=== PATIENT | female | born 1940 | race Caucasian/White ===

== ENCOUNTER 2023-12-08 13:07 | Emergency (ER) | payer BC, SELFPAY ==
[2023-12-08 13:14] VITALS: BP 183/83; PULSE 66; RESP 18; O2SAT 97; BMI 24.2
--- NOTE | 2023-12-08 13:30 | CRLHL7_ITS ---
For Patients: As a result of the Century Cures Act, medical imaging exams and procedure reports are released immediately into your electronic medical record. You may view this report before your referring provider. If you have questions, please contact your health care provider. INDICATION: Right-sided rib pain related to trauma. COMPARISON: There are no prior studies for comparison TECHNIQUE: : CT examination of the chest was performed without contrast.Thin axial sections were obtained from the thoracic inlet through the lung bases. Please note that all CT scans at this facility use dose modulation, iterative reconstruction, and/or weight-based dosing when appropriate to reduce radiation dose to as low as reasonably achievable. FINDINGS: : HEART and MEDIASTINUM: The heart is enlarged. There is no mediastinal or hilar adenopathy or mass. There are atherosclerotic vascular calcifications and aortic valvular calcifications. A small hiatal hernia is noted LUNGS and PLEURAL SPACES: There is a very small right pneumothorax. No significant pleural effusion. Minimal bibasilar atelectasis. The lungs are globally abnormal. There is a mosaic attenuation pattern identified. This is a descriptive term describing ground-glass opacities interspersed with normal parenchyma.The appearance is nonspecific. The most common causes are atypical inflammatory process, atypical appearance of edema, small-vessel disease and small airway disease. This is unlikely to be due to the patient`s acute trauma. VISUALIZED UPPER ABDOMEN: Cholelithiasis. No evidence of acute cholecystitis or common duct obstruction limited visualized upper abdominal structures appear normal. OSSEOUS STRUCTURES: Nondisplaced fractures of the posterolateral aspect of the right 10th and 11th ribs. No additional fractures identified including the spine and sternum. TUBES and LINES: None. I discussed this case with Dr. Watson at 2 o`clock on December 08, 2023 IMPRESSION: 1. Nondisplaced fractures of the posterolateral aspect of the right 10th and 11th ribs. No additional fractures identified including the spine 2. Very small right pneumothorax. No significant pleural fluid on the right. 3. Minimal bibasilar subsegmental atelectasis. Diffuse abnormal lungs presenting as a mosaic attenuation pattern. This pattern is discussed in the body of the report. The mosaic attenuation pattern is unlikely to be related to the patient`s trauma. 4. Cholelithiasis without evidence of acute cholecystitis or common duct obstruction. Please note that all CT scans at this facility use dose modulation, iterative reconstruction, and/or weight-based dosing when appropriate to reduce radiation dose to as low as reasonably achievable. Dictated by Joseph Elder MD @ 12/08/2023 2:02:02 PM (Electronically Signed)
[2023-12-08 13:34] VITALS: TEMP 36.7
--- OUTSIDE RECORDS SUMMARY | 2023-12-08 14:19 | XMS_ITS | Continuity of Care Document ---
Author Organization [facility] Address [address] [place] [address] Phone Care Team Providers Care Hospitality Specialist Name Role Phone Jerri Mcnally MD Unavailable Unavailable Allergies, Adverse Reactions, Alerts Substance Reaction Status Criticality Penicillins Active No Information Sulfa (Sulfonamide Antibiotics) Active No Information Medications Medication Instructions Dosage Effective Dates (start - stop) Status Comments LISINOPRIL TAB 10MG TAKE 1 TABLET DAILY - Active SIMVASTATIN TAB 20MG TAKE 1 TABLET DAILY 20 MG - Active donepezil 10 mg tablet - Active Zocor 20 mg tablet take 1 tablet by oral route every day 20 MG - No Longer Active lisinopril 10 mg tablet TAKE 1 TABLET DAILY - No Longer Active Procedures Procedure Date MED LIST DOCD IN RCRD DIAST BP < 80 MM HG SYST BP < 130 MM HG PT FALLS ASSESS-DOCD LE1/YR FALL RISK ASSESSMENT DOCD AMNT PAIN NOTED NONE PRSNT WELL EXAM, Established Age 65+ Yr Attests To Documenting In EHR Current Me ds Annual Wellness Visit Subsequent 2022 Attests To Documenting In EHR Current Me ds ROUTINE VENIPUNCTURE Hemoglobin A1c HG A1C LEVEL < 7.0% COMPREHEN METABOLIC PANEL ASSAY OF URINE CREATININE MICROALBUMIN, QUANTITATIVE LIPID PANEL LDL-C <100 MG/DL ASSAY THYROID STIM HORMONE MED LIST DOCD IN RCRD DIAST BP < 80 MM HG SYST BP >=130-139MM HG OFFICE/OUTPATIENT VISIT, EST Attests To Documenting In EHR Current Me ds AMNT PAIN NOTED NONE PRSNT ADVNC CARE PLAN TLK DOCD ACP DISCUSS/DSCN MKR DOCD IAnnual Wellness Visit Initial ROUTINE VENIPUNCTURE LIPID PANEL COMPREHEN METABOLIC PANEL Hemoglobin A1c HG A1C LEVEL < 7.0% ASSAY THYROID STIM HORMONE ASSAY OF URINE CREATININE MICROALBUMIN, QUANTITATIVE SARS Antigen HERNÁN OFFICE/OUTPATIENT VISIT, EST Attests To Documenting In EHR Current Ok ds Review All Meds By Provider Documented I n EHR IMMUNIZATION ADMIN Influenza High Dose Vaccine WELL EXAM, Established Age 65+ Yr OFFICE/OUTPATIENT VISIT, EST Attests To Documenting In EHR Current Ok ds Review All Meds By Provider Documented I n EHR ROUTINE VENIPUNCTURE COMPREHEN METABOLIC PANEL Hemoglobin A1c LIPID PANEL ASSAY THYROID STIM HORMONE MICROALBUMIN, QUANTITATIVE ASSAY OF URINE CREATININE Annual Depression Screening Greater Than 50% Of 15 Min WELL EXAM, Established Age 65+ Yr Review All Meds By Provider Documented I n EHR Attests To Documenting In EHR Current Ok ds No Charge IMMUNIZATION ADMIN Influenza High Dose Vaccine ROUTINE VENIPUNCTURE COMPREHEN METABOLIC PANEL Hemoglobin A1c OFFICE/OUTPATIENT VISIT, EST Review All Meds By Provider Documented I n EHR Attests To Documenting In EHR Current Ok ds OFFICE/OUTPATIENT VISIT, EST Review All Meds By Provider Documented I n EHR Attests To Documenting In EHR Current Ok ds IMMUNIZATION ADMIN Influenza High Dose Vaccine WELL EXAM, Established Age 65+ Yr Review All Meds By Provider Documented I n EHR Attests To Documenting In EHR Current Ok ds ROUTINE VENIPUNCTURE COMPREHEN METABOLIC PANEL Hemoglobin A1c MICROALBUMIN, QUANTITATIVE ASSAY OF URINE CREATININE LIPID PANEL ASSAY THYROID STIM HORMONE IMMUNIZATION ADMIN, EACH ADD TDAP VACCINE 7 Years Or Older IM 2016 IMMUNIZATION ADMIN Influenza High Dose Vaccine WELL EXAM, Established Age 65+ Yr Review All Meds By Provider Documented I n EHR Attests To Documenting In EHR Current Ok ds COMPREHEN METABOLIC PANEL Hemoglobin A1c MICROALBUMIN, QUANTITATIVE ASSAY OF URINE CREATININE LIPID PANEL ROUTINE VENIPUNCTURE No Show X-RAY EXAM, KNEE, 4 OR MORE VIEWS Triamcinolone acetonide inj KENALOG DRAIN/INJECT, JOINT/BURSA OFFICE/OUTPATIENT VISIT, NEW Eco Hinged Knee OFFICE/OUTPATIENT VISIT, EST IMMUNIZATION ADMIN Influenza High Dose Vaccine OFFICE/OUTPATIENT VISIT, EST IMMUNIZATION ADMIN, EACH ADD Pneumococcal Vaccine 13 Valent 15 ROUTINE VENIPUNCTURE COMPREHEN METABOLIC PANEL Hemoglobin A1c LIPID PANEL OFFICE/OUTPATIENT VISIT, EST IMMUNIZATION ADMIN Influenza High Dose Vaccine ROUTINE VENIPUNCTURE COMPREHEN METABOLIC PANEL ASSAY THYROID STIM HORMONE Hemoglobin A1c LIPID PANEL ASSAY OF URINE CREATININE MICROALBUMIN, QUANTITATIVE OFFICE/OUTPATIENT VISIT, EST ROUTINE VENIPUNCTURE COMPREHEN METABOLIC PANEL Hemoglobin A1c LIPID PANEL Influenza High Dose Vaccine OFFICE/OUTPATIENT VISIT, EST IMMUNIZATION ADMIN Advance Directives Directive Yes / No Effective Date File Name No Information Encounters Encounter Description Practice Location Reason(s) For Visit Diagnoses Date Provider Providers Copied on Encounter [facility], [address], [place], [place], [address] , [place] tel:[phone] [facility] No Information 3 [facility] Jerri. [address], [place], [place], [address], [place]. tel:[phone] WELL EXAM, Established Age 65+ Yr [facility], [address], [place], [place], [address] , [place] tel:[phone] [facility] diabetes (chief complaint)hype rlipidemia(lip id) (chief complaint)hype rtension (chief complaint)prev entive exam (chief complaint) Body mass index (BMI) 27.0-27.9, adultDiabetes mellitus type 2 in obeseHypercho lesterolemiaE ssential (primary) hypertensionE ncntr for general adult medical exam w/o abnormal findings 3 Uli Guthrie. [address], [place], [place], [address], [place]. tel:[phone] Jerri Mcnally.Osiris eferring Provider: Jerri Mcnally, [address], [place], [address] . tel:[phone] [facility], [address], [place], [place], [address] , [place] tel:[phone] [facility] Type 2 diabetes mellitus without complications Essential (primary) hypertensionP ure hypercholeste rolemia, unspecified 3 Uli Guthrie. [address], [place], [place], [address], . tel:[phone] Jerri Mcnally.Yvonne Mcnally.R eferring Provider: Jerri Mcnally, [address], [place], [address] . tel:[phone] [facility], [address], [place], [place], [address] , [place] tel:[phone] [facility] No Information 2 Uli Guthrie. [address], [place], [place], [address], [place]. tel:[phone] [facility], [address], [place], [place], [address] , [place] tel:[phone] [facility] No Information 2 Uli Guthrie. [address], [place], [place], [address], [place]. tel:[phone] OFFICE/OUTPA TIENT VISIT, EST [facility], [address], [place], [place], [address] , [place] tel:[phone] [facility] diabetes (chief complaint)hype rlipidemia(lip id) (chief complaint)hype rtension (chief complaint) Diabetes mellitus type 2 in obeseEssentia l (primary) hypertensionH ypercholester olemiaBody mass index (BMI) 27.0-27.9, adultEncntr for general adult medical exam w/o abnormal findings 2 Uli Guthrie. [address], [place], [place], [address], [place]. tel:[phone] Jerri Mcnally.R eferring Provider: Jerri Mcnally, [address], [place], [address] . tel:[phone] [facility], [address], [place], [place], [address] , [place] [phone] [facility] 2 Uli Guthrie. [address], [place], [place], [address], [place]. tel:[phone] Jerri Mcnally.Yvonne Mcnally.R eferring Provider: Jerri Mcnally, [address], [place], [address] . tel:[phone] OFFICE/OUTPA TIENT VISIT, EST [facility], [address], [place], [place], [address] , [place] [phone] [facility] Cough (chief complaint)diar mayela (chief complaint) CoughDiarrhea 0 Uli Guthrie. [address], [place], [place], [address], [place]. tel:[phone] Jerri Mcnally.Yvonne Mcnally.R eferring Provider: Jerri Mcnally, [address], [place], [address] . tel:[phone] WELL EXAM, Established Age 65+ Yr [facility], [address], [place], [place], [address] , [place] tel:[phone] [facility] diabetes (chief complaint)hype rlipidemia(lip id) (chief complaint)hype rtension (chief complaint)prev entive exam (chief complaint) Essential (primary) hypertensionD iabetes mellitus type 2 in obeseHypercho lesterolemiaE ncntr for general adult medical exam w/o abnormal findingsEncou nter for immunization Jan- 0 Uli Guthrie. [address], [place], [place], [address], [place]. tel:[phone] Jerri Mcnally.Yvonne Cevallos eferring Provider: Jerri Mcnally, [address], [place], [address] . tel:[phone] WELL EXAM, Established Age 65+ Yr [facility], [address], [place], [place], [address] , [place] [phone] [facility] diabetes (chief complaint)hype rlipidemia(lip id) (chief complaint)hype rtension (chief complaint)prev entive exam (chief complaint) Essential (primary) hypertensionH istory of shinglesEncou nter for general adult medical examination without abnormal findingsHyper cholesterolem iaDiabetes mellitus type 2 in obese 9 Uli Guthrie. [address], [place], [place], [address], [place]. tel:[phone] Jerri Cevallos eferring Provider: Jerri Mcnally, [address], [place], [address] . tel:[phone] [facility], [address], [place], [place], [address] , [place] [phone] [facility] Allergy Testing (chief complaint) No Information 8 Abraham Irvin. [address], [place], [address], [place]. tel:[phone] Jerri Mcnally.Yvonne Cevallos eferring Provider: Albaro Mcdermott, [address] [place], [address] . tel:[phone] [facility], [address], [place], [place], [address] , [place] tel:[phone] [facility] walk-in flu injection (chief complaint) No Information 8 Uli Guthrie. [address], [place], [place], [address], [place]. tel:[phone] Jerri DengR eferring Provider: Jerri Mcnally, [address], [place], [address] . tel:[phone] OFFICE/OUTPA TIENT VISIT, EST [facility], [address], [place], [place], [address] , [place] [phone] [facility] diabetes (chief complaint)hype rlipidemia(lip id) (chief complaint)hype rtension (chief complaint) Type 2 diabetes mellitus without complications Essential (primary) hypertensionO ther hyperlipidemi a 8 Uli Guthrie. [address], [place], [place], [address], [place]. tel:[phone] Jerri Mcnally.R eferring Provider: Jerri Mcnally, [address], [place], [address] . tel:[phone] OFFICE/OUTPA TIENT VISIT, EST [facility], [address], [place], [place], [address] , [place] [phone] [facility] Rash (chief complaint) Herpes zoster without complication 8 Uli Guthrie. [address], [place], [place], [address], [place]. tel:[phone] Jerri Cevallos eferring Provider: Jerri Mcnally, [address], [place], [address] . tel:[phone] WELL EXAM, Established Age 65+ Yr [facility], [address], [place], [place], [address] , [place] [phone] [facility] preventive exam (chief complaint)hype rtension (chief complaint)hype rlipidemia(lip id) (chief complaint)diab etes (chief complaint) Encntr for general adult medical exam w/o abnormal findingsType 2 diabetes mellitus without complications Encounter for immunizationE ssential (primary) hypertensionO ther hyperlipidemi a 7 Uli Guthrie. [address], [place], [place], [address], [place]. tel:[phone] Jerri Mcnally.R eferring Provider: Jerri Mcnally, [address], [place], [address] . tel:[phone] WELL EXAM, Established Age 65+ Yr [facility], [address], [place], [place], [address] , [place] tel:[phone] [facility] preventive exam (chief complaint)diab etes (chief complaint)hype rlipidemia(lip id) (chief complaint)hype rtension (chief complaint) Encntr for general adult medical exam w/o abnormal findingsType 2 diabetes mellitus without complications Essential (primary) hypertensionO ther hyperlipidemi aEncounter for immunizationE ncounter for screening mammogram for malignant neoplasm of breast Uli Guthrie. [address], [place], [place], [address], [place]. tel:[phone] Jerri Mcnally.Yvonne Mcnally.R eferring Provider: Jerri Mcnally, [address], [place], [address] . tel:[phone] [facility], [address], [place], [place], [address] , [place] tel:[phone] [facility] No Information Uli Guthrie. [address], [place], [place], [address], [place]. tel:[phone] Jerri DengR eferring Provider: Jerri Mcnally, [address], [place], [address] . tel:[phone] [facility], [address], [place], [place], [address] , [place] [phone] [facility] No Information 6 Uli Guthrie. [address], [place], [place], [address], [place]. tel:[phone] [facility], [address], [place], [place], [address] , [place] [phone] [facility] No Information 6 Pawlow Devaughn Sussy. [address], [place], [address], [place]. tel:[phone] OFFICE/OUTPA TIENT VISIT, NEW [facility], [address], [place], [place], [address] , [place] [phone] [facility] left knee pain (chief complaint) Pain in left kneeBilateral primary osteoarthriti s of knee 6 Pawlow Waubun Sussy. [address], [place], [address], [place]. tel:[phone] Jerri Mcnally.Yvonne Cevallos eferrwilmer Provider: Jerri Mcnally, [address], [place], [address] . tel:[phone] OFFICE/OUTPA TIENT VISIT, EST [facility], [address], [place], [place], [address] , [place] [phone] [facility] Musculoskeleta l pain (chief complaint) Pain in left leg Jun-0 6 Uli Guthrie. [address], [place], [place], [address], [place]. tel:[phone] Referring Provider: Jerri Mcnally, [address], [place], [address] . tel:[phone] OFFICE/OUTPA TIENT VISIT, EST [facility], [address], [place], [place], [address] , [place] tel:[phone] [facility] diabetes (chief complaint)hype rlipidemia(lip id) (chief complaint)hype rtension (chief complaint) No Information Uli Guthrie. [address], [place], [place], [address], [place]. tel:[phone] Referring Provider: Jerri Mcnally, [address], [place], [address] . tel:[phone] [facility], [address], [place], [place], [address] , [place] [phone] [facility] No Information Uli Guthrie. [address], [place], [place], [address], [place]. tel:[phone] Referring Provider: Jerri Mcnally, [address], [place], [address] . tel:[phone] [facility], [address], [place], [place], [address] , [place] [phone] [facility] No Information Uli Guthrie. [address], [place], [place], [address], [place]. tel:[phone] OFFICE/OUTPA TIENT VISIT, EST [facility], [address], [place], [place], [address] , [place] tel:[phone] [facility] hyperlipidemia (chief complaint)diab etes (chief complaint)hype rtension (chief complaint) No Information Uli Guthrie. [address], [place], [place], [address], [place]. tel:[phone] Referring Provider: Jerri Mcnally, [address], [place], [address] . tel:[phone] [facility], [address], [place], [place], [address] , [place] tel:[phone] [facility] No Information 4 Uli Guthrie. [address], [place], [place], [address], [place]. tel:[phone] Referring Provider: Jerri Mcnally, [address], [place], [address] . tel:[phone] OFFICE/OUTPA TIENT VISIT, EST [facility], [address], [place], [place], [address] , [place] tel:[phone] [facility] diabetes (chief complaint)hype rlipidemia (chief complaint)hype rtension (chief complaint) No Information 4 Uli Guthrie. [address], [place], [place], [address], [place]. tel:[phone] Referring Provider: Jerri Mcnally, [address], [place], [address] . tel:[phone] [facility], [address], [place], [place], [address] , [place] tel:[phone] [facility] No Information Uli Guthrie. [address], [place], [place], [address], [place]. tel:[phone] Referring Provider: Jerri Mcnally, [address], [place], [address] . tel:[phone] OFFICE/OUTPA TIENT VISIT, EST [facility], [address], [place], [place], [address] , [place] [phone] [facility] diabetes (chief complaint)hype rlipidemia (chief complaint)hype rtension (chief complaint) No Information 3 Uli Guthrie. [address], [place], [place], [address], [place]. tel:[phone] Referring Provider: Jerri Mcnally, [address], [place], [address] . tel:[phone] [facility], [address], [place], [place], [address] , [place] tel:[phone] [facility] No Information 3 Uli Guthrie. [address], [place], [place], [address], [place]. tel:[phone] Family History Family Member Type Diagnosis Age At Onset Problem (finding) Family history of Cance r, unknown Mother Problem (finding) Arthritis Father Problem (finding) depression Brother Problem (finding) Arthritis Mother Problem (finding) congestive heart failur e Mother Problem (finding) hypercholesterolemia Mother Problem (finding) diabetes melli tus in first degree relative Brother Problem (finding) DJD hip asterna Brother Problem (finding) asthma Sister Problem (finding) diabetes melli tus in first degree relative Father Problem (finding) diabetes melli tus in first degree relative Immunizations Vaccine Date Status Comments influenza, intradermal, quadrivalent, preservative free, injectable administered Source: Public [facility]gen[facility] y SARS-COV-2 (COVID-19) vaccin e, mRNA, spike protein, LNP, bivalent booster, preservative free, 30 mcg/0.3 mL dose, anish-sucrose formulation administered Source: Public Agency COVID-19, mRNA,LNP-S,PF, 100 mcg/0.5mL administered Source: Other Regist ry Influenza quadrivalent, adjuvanted administered Source: Other Regist ry SARS-COV-2 (COVID-19) vaccin e, mRNA, spike protein, LNP, preservative free, 100 mcg or 50 mcg dose administered Source: Other Provid er SARS-COV-2 (COVID-19) vaccin e, mRNA, spike protein, LNP, preservative free, 100 mcg or 50 mcg dose administered Source: Other Provid er [facility] Fluzone High Dose administered [facility] e: New Immunization Record [facility] High Dose Flu administered Source: N ew Immunization Record [facility] Tdap administered Source: New Imm unization Record [facility] HD FLU administered Source: New Imm unization Record [facility] Flu HD administered Source: New Imm unization Record PCV 13 administered Source: New Imm unization Record [facility] Fluzone High Dose administered [facility]our[facility] e: New Immunization Record [facility] High Dose Flu administered Source: N ew Immunization Record Fluzone High Dose administered Source: Ne w Immunization Record Pneumo (2 yrs or older) (PPV23) administered Source: Other Provid er Payers Payer name Insurance type Covered green party ID Authoriza tion(s) [facility] [id number] [facility] [id number] [facility] [id number] [facility] [id number] [facility] [id number] [facility] [id number] [facility] [id number] [facility] [id number] [facility] [id number] Social History Type Description Quantity Date Captured Comments Sex Female Smoking Status No Information Chief Complaint And Reason For Visit No Information Reason For Referral Reason For Referral No Information Plan Of Treatment Date Type Action Status Goal Hepatitis C Scre en. Due on due Goal DEXA scan. Due on due Goal Urine microalbum in. Due on due Goal Influenza Vaccin e. Due on due Goal Diabetes Educati on Class. Due on due Goal Tdap due Goal Depression scree gracia. Due on due Goal Hemoglobin A1c. Due on due Goal Lipid Panel. Due on 024 due Goal Foot exam. Due on due Goal Pneumococcal vaccine [address]- Review smoking History. Due on due Goal Prevnar 20 due Goal Prevnar 15 due Goal PCV 13 due Goal Annual Well Visi t (AWV). Due on due Goal Diabetes Educati on Class. Due on due Goal Document TOB Sta tus\ Cessation Advice. Due on due Goal Mammogram. Due on 2 due Goal ASCVD 10 year ri sk. Due on due Goal Shingrix #2. Due on due Goal Shingrix #1. Due on 022 due Goal Urine microalbum in. Due on due Goal H&P. Due on due Goal Hemoglobin A1c. Due on due Goal Depression scree gracia. Due on due Goal Prevnar due Goal Influenza Vaccin e. Due on due Goal Pneumococcal vaccine 23 due Goal Foot exam. Due on 2 due Goal Lipid Panel. Due on 023 due Goal Tdap due Goal H&P. Due on due Goal Depression scree gracia. Due on due Goal Foot exam. Due on 1 due Goal Mammogram. Due on 0 due Goal Shingrix #1. Due on due Goal Zoster vaccine ( 1st). Due on due Goal Shingrix #2. Due on due Goal Pneumococcal vaccine due Goal Hemoglobin A1c. Due on due Goal Shingrix #1. Due on due Goal H&P. Due on due Goal Foot exam. Due on 1 due Goal Shingrix #2. Due on due Goal Zoster vaccine ( 1st). Due on due Goal Depression scree gracia. Due on due Goal Mammogram. Due on 0 due Goal Pneumococcal vaccine due Goal Annual Well Visi t (AWV). Due on due Goal Shingrix #2. Due on 019 due Goal Mammogram. Due on 9 due Goal Pneumococcal vaccine due Goal H&P. Due on due Goal Depression scree gracia. Due on due Goal Shingrix #1. Due on 019 due Goal Foot exam. Due on 0 due Goal Depression scree gracia. Due on due Goal Foot exam. Due on 8 due Goal Pneumococcal vaccine due Goal H&P. Due on due Goal Annual Well Visi t (AWV). Due on due Goal Shingrix #2. Due on 018 due Goal Mammogram. Due on 8 due Goal Shingrix #1. Due on 018 due Goal Hemoglobin A1c. Due on due Goal Depression scree gracia. Due on due Goal Foot exam. Due on 8 due Goal Hemoglobin A1c. Due on due Goal Pneumococcal vaccine due Goal Mammogram. Due on 8 due Goal H&P. Due on due Goal Shingrix #2. Due on 018 due Goal Shingrix #1. Due on 018 due Goal Annual Well Visi t (AWV). Due on due Goal Mammogram. Due on 8 due Goal Cognitive assess ment. Due on due Goal Dilated eye exam . Due on due Goal Mammogram. Due on 8 due Goal Cognitive assess ment. Due on due Goal Prevnar due Goal Foot exam. Due on 8 due Goal Zoster vaccine. Due on due Goal Mammogram. Due on 7 due Goal Annual Well Visi t (AWV). Due on due Goal Tdap due Goal Cognitive assess ment. Due on due Goal Cognitive assess ment. Due on due Goal Zoster vaccine. Due on due Goal Tdap. Due on due Goal Mammogram. Due on 6 due Goal Td vaccine. Due on 16 due Goal Dilated eye exam . Due on due Goal Mammogram. Due on 6 due Goal Diabetes Educati on Class. Due on due Goal Depression scree gracia. Due on due Goal H&P. Due on due Goal Tdap. Due on due Goal Cognitive assess ment. Due on due Goal Influenza Vaccin e. Due on due Goal Cognitive Assess ment. Due on due Goal Pneumococcal vaccine 23 due Goal Foot exam. Due on 6 due Goal Td vaccine. Due on 16 due Goal Dilated eye exam . Due on due Goal Zoster vaccine. Due on due Goal Document TOB Sta tus\ Cessation Advice. Due on due Goal Pneumococcal vac cine 23. Due on due Goal Colonoscopy. Due on 016 due Goal Mammogram. Due on 6 due Goal DEXA scan. Due on 6 due Goal H&P. Due on due Goal Depression scree gracia. Due on due Goal Prevnar 13 due Goal Tdap. Due on due Goal Td vaccine. Due on 16 due Goal Zoster vaccine. Due on due Goal FOBT. Due on due Goal Sigmoidoscopy. Due on due Referral Referred To: Sussy Cantor MD [address] [place], [phone] Ordered: Referrals: Orthopedics. Sussy Cantor MD. Evaluate and treat Appointment date/timeframe: 06/25/2015 ordered Patient Education Type 2 Diabete s: Care Instructions completed Patient Education Shingles: Care Instruct ions completed Patient Education Rash: Care Instructions completed Patient Education Well Visit, Ov er 66: Care Instructions completed Future Order: Lab Order CBC, Melisa telet: No Differential (Hgm LH), Scheduled for: Ordered Future Order: Lab Order Comp Met abolic Panel (14) AU (Comp i AU), Scheduled for: Ordered Future Order: Lab Order Hemoglob in A1c ([id number]), Scheduled for: Ordered Future Order: Lab Order Lipid Pa monik calc LDL (Lipidcalc), Scheduled for: Ordered Future Order: Lab Order TSH (dTS H), Scheduled for: Ordered Future Order: Lab Order Urine Mi croalb/Creat ratio (Tea creat), Scheduled for: Ordered Future Order: Lab Order Comp Met abolic Panel (14) AU (Comp i AU), Scheduled for: Ordered Future Order: Lab Order Hemoglob in A1c ([id number]), Scheduled for: Ordered Future Order: Lab Order Lipid Pa monik calc LDL (Lipidcalc), Scheduled for: Ordered Future Order: Lab Order TSH (dTS H), Scheduled for: Ordered Future Order: Lab Order Urine Mi croalb/Creat ratio (Tea creat), Scheduled for: Ordered Future Order: Lab Order Comp Met abolic Panel (14) AU (Comp i AU), Collected on: , Sent on: Sent Future Order: Lab Order Hemoglob in A1c ([id number]), Collected on: , Sent on: Sent Future Order: Lab Order Lipid Pa monik calc LDL (Lipidcalc), Collected on: , Sent on: Sent Future Order: Lab Order Urine Mi croalb/Creat ratio (Tea creat), Collected on: , Sent on: Sent Future Order: Radiology Order X- RAY OF KNEE, 3 VIEWS ([id number]), Appointment on: , Sent on: Sent Future Order: Lab Order Comp Met abolic Panel (14) AU (Comp i AU), Appointment on: , Sent on: Sent Future Order: Lab Order Hemoglob in A1c ([id number]), Appointment on: , Sent on: Sent Future Order: Lab Order Lipid Pa monik calc LDL (Lipidcalc), Appointment on: , Sent on: Sent Future Order: Lab Order TSH (dTS H), Appointment on: , Sent on: Sent History Of Present Illness Encounter Date Complaint History Of Prese nt Illness diabetes The diabetes nina litus began in 2006.The diabetes mellitus began in 2006. Risk factors include: obesity and over age 4545 years old. Risk factors include: obesity, over age 4545 years old, obesity and over age 4546 years old. Managing with: Diet and Diet. Associated symptoms include: Associated symptoms include: weight loss. weight loss. Pertinent negatives include Pertinent negatives include chest pain diarrhea, dyspnea and weight gain., chest pain, diarrhea, dyspnea and weight gain. Additional information: Follow up on labs A1C=5.5 Glucose=92 on 09/30/22. preventive exam : 2. Nancy ty: Term: 2. Livin. The patient states she uses menopausal for control. Diet healthy. She does not take calcium. She does not take Vitamin D. She does take multivitamins. She does not take Folic acid.The patient states her exercise level is sedentary and frequency is occasional. The patient does not use tobacco. She does not drink alcohol. hyperlipidemia(lipid) Reasons fo r screening include diabetes mellitus and hypertension. Reasons for screening do not include tobacco use. Pertinent negatives include abdominal pain, chest pain, constipation, diarrhea, dizziness, edema, fatigue, headache and nausea. Additional information: Follow up on labs Ddrs=641 HDL=61 LDL=84 TRIG=90 on 09/30/22. hypertension The HTN started in 2006. The symptoms began gradually. Risk factors include age over age 60, family history HTN, gout or CAD and obesity. Pertinent negatives include chest pain, dyspnea, fatigue, headache, hematuria, irregular heartbeat/palpitations and nausea. hyperlipidemia(lipid) Reasons fo r screening include diabetes mellitus and hypertension. Reasons for screening do not include tobacco use. Pertinent negatives include abdominal pain, chest pain, constipation, diarrhea, dizziness, edema, fatigue, headache and nausea. Additional information: Follow up on labs Jfgf=215 HDL=51 LDL=86 PWWL=777 on 07/01/21. hypertension The HTN started in 2006. The symptoms began gradually. Risk factors include age over age 60, family history HTN, gout or CAD and obesity. Pertinent negatives include chest pain, dyspnea, fatigue, headache, hematuria, irregular heartbeat/palpitations and nausea. diabetes The diabetes nina litus began in 2006. Risk factors include: obesity and over age [age] years old. Managing with: Diet. Associated symptoms include: weight loss. Pertinent negatives include chest pain, diarrhea and dyspnea. Additional information: Follow up on labs A1C=5.5 Glucose=93 on 07/01/21. diarrhea Onset: 5 days ag o. Severity level is: 4. The problem has resolved. Pertinent negatives include fever, nausea, rash and weight loss. Cough Onset: 4 days ag o. Severity: 3. The patient describes the cough as barking. It occurs persistently. The problem has improved. Associated symptoms include cough and nasal congestion. Pertinent negatives include chills, dyspnea, fever and weight loss. Additional information: Patient is c/o congestion cough, diarrhea and some runny nose. Small amt of clear phlegm in AM. hypertension The HTN started in 2006. The symptoms began gradually. Risk factors include age over age 60, family history HTN, gout or CAD and obesity. Pertinent negatives include chest pain, dyspnea, fatigue, headache, hematuria, irregular heartbeat/palpitations and nausea. diabetes The diabetes nina litus began in 2006. Risk factors include: obesity and over age [age] years old. Managing with: Diet. Associated symptoms include: weight loss. Pertinent negatives include chest pain, diarrhea and dyspnea. preventive exam : 2. Nancy ty: Term: 2. Livin. The patient states she uses menopausal for control. Negative for: breast discharge, breast lump(s), breast pain and breast self exam. Diet healthy. She takes calcium supplements. She reports taking Vitamin D. She does take multivitamins. She does not take Folic acid.The patient states her exercise level is sedentary and frequency is occasional. The patient does not use tobacco. hyperlipidemia(lipid) Reasons fo r screening include diabetes mellitus and hypertension. Reasons for screening do not include tobacco use. Pertinent negatives include abdominal pain, chest pain, constipation, diarrhea, dizziness, edema, fatigue, headache and nausea. hyperlipidemia(lipid) Reasons fo r screening include diabetes mellitus and hypertension. Pertinent negatives include abdominal pain, chest pain, constipation, diarrhea, dizziness, edema, fatigue, headache and nausea. preventive exam : 2. Nancy ty: Term: 2. Livin. The patient states she uses menopausal for control. Negative for: breast discharge, breast lump(s), breast pain and breast self exam. Diet healthy. She does not take calcium. She does not take Vitamin D. She does take multivitamins. She does not take Folic acid.The patient states her exercise level is sedentary and frequency is occasional. The patient does not use tobacco. diabetes The diabetes nina litus began in 2006. The problem is stable. Risk factors include: obesity and over age [age] years old. She Has been managed with diet. Associated symptoms include: weight loss. Pertinent negatives include chest pain, diarrhea and dyspnea. hypertension The HTN started in 2006. The symptoms began gradually. Risk factors include age over age 60, family history HTN, gout or CAD and obesity. Pertinent negatives include chest pain, dyspnea, fatigue, headache, hematuria, irregular heartbeat/palpitations and nausea. Allergy Testing Wrong feed yovannye cathie. This patient was not in this office today. No testing or charges. (Cathie Mounika [facility]) walk-in flu injection Pt was giv en flu injection today. hypertension The HTN started in 2006. The symptoms began gradually. Risk factors include age over age 60, family history HTN, gout or CAD and obesity. Pertinent negatives include chest pain, dyspnea, fatigue, headache, hematuria and irregular heartbeat/palpitations. diabetes The diabetes nina litus began in 2006. The problem is stable. Risk factors include: obesity and over age [age] years old. She Has been managed with diet. Associated symptoms include: weight loss. Pertinent negatives include chest pain, diarrhea and dyspnea. Additional information: Drawing labs today.. hyperlipidemia(lipid) Reasons fo r screening include diabetes mellitus and hypertension. Reasons for screening do not include tobacco use. Pertinent negatives include abdominal pain, chest pain, constipation, diarrhea, dizziness, edema, fatigue, headache and nausea. Additional information: Patient is requesting labs today. Rash The patient pres ents for Rash. This episode began 8 days ago. The symptom(s) are described as moderate. Affected area(s) include trunk and abdomen. The patient describes the affected area(s) as dry, red and stinging. Relieving factors include topical pain reliever. Associated symptoms include erythema (skin) and painful rash. Additional information: Pain when reached for something 10 d ago. Then rash broke out in that area 2 d later. Pain is mild and gets some relief from otc cream w/ lidocaine. diabetes The diabetes nina litus began in 2006. Risk factors include: obesity and over age [age] years old. She Has been managed with diet. Pertinent negatives include chest pain, dyspnea and weight loss. hypertension The HTN started in 2006. The symptoms began gradually. Risk factors include age over age 60, family history HTN, gout or CAD and obesity. Pertinent negatives include chest pain, dyspnea, fatigue, headache, hematuria and irregular heartbeat/palpitations. hyperlipidemia(lipid) Reasons fo r screening do not include tobacco use. Pertinent negatives include chest pain, edema, fatigue and headache. Additional information: Patient is requesting labs today. preventive exam : 2. Nancy ty: Term: 2. Livin. The patient states she uses menopausal for control. Negative for: breast discharge, breast lump(s), breast pain and breast self exam. Diet healthy. She does not take calcium. She does not take Vitamin D. She does take multivitamins occasionally. She does not take Folic acid.The patient states her exercise level is sedentary and frequency is occasional. preventive exam : 2. Nancy ty: Term: 2. Livin. The patient states she uses menopausal for control. Negative for: breast discharge, breast lump(s), breast pain and breast self exam. She takes calcium supplements. She reports taking Vitamin D. She does take multivitamins occasionally. She does not take Folic acid.The patient states her exercise level is sedentary and frequency is occasional. hypertension The HTN started in 2006. The symptoms began gradually. It is currently stable. Risk factors include age over age 60, family history HTN, gout or CAD and obesity. Pertinent negatives include chest pain, dyspnea, fatigue, headache and irregular heartbeat/palpitations. hyperlipidemia(lipid) Reasons fo r screening do not include tobacco use. Additional information: Follow up on labs. diabetes The diabetes nina litus began in 2006. The problem is stable. Risk factors include: obesity and over age [age] years old. She Has been managed with diet. Pertinent negatives include chest pain, diarrhea and dyspnea. Additional information: Follow up on labs. A1C = 6.0. left knee pain Onset: on 2014. Severity level is 4. It occurs intermittently and is improving. Location: left knee. There is no radiation. The pain is aching and dull. Context: there is an injury. Trauma type: twisted/pivoted, occurred in a public building on 04/02/2015. The pain is aggravated by bending. The pain is relieved by massage and stretching. Associated symptoms include decreased mobility, joint instability and limping. Musculoskeletal pain Onset: 3 mo nths ago. Severity level is 4. It occurs intermittently and is improving. Location: left lower leg. The pain is aching and sharp. Associated symptoms include decreased mobility and limping. Pertinent negatives include locking, popping, swelling and weakness. Additional information: Was flying to [place], and walked a lot that day and missed her flight and was hurrying. It started to ache behind her knee and then up along lateral thigh. Has been limping some for 3 months now though it has improved some. She took Aleve for a month. diabetes The diabetes nina elizabeth began in 2006. The problem is stable. Risk factors include: obesity and over age [age] years old. She Has been managed with diet. Pertinent negatives include chest pain, diarrhea, dyspnea and weight gain. Additional information: Doing well. Very stable A1C= 6.0.. hypertension The HTN started in 2006. The symptoms began gradually. The severity has been described as being 3. It is currently stable. Risk factors include age over age 60, family history HTN, gout or CAD and obesity. Pertinent negatives include chest pain, dyspnea, fatigue, headache, irregular heartbeat/palpitations and visual disturbances. hyperlipidemia(lipid) The severi ty of the problem is moderate. The problem is controlled with medication. Patient compliance with medication is excellent. Reasons for screening include diabetes mellitus, hypertension and obesity. Reasons for screening do not include tobacco use. Pertinent negatives include abdominal pain, chest pain, diarrhea, edema, fatigue and headache. hyperlipidemia The diabetes sta rted in 2006 and is stable. The hyperlipidemia started in 2006 and is stable. Risk factors include age over 50. The patient is adhering to medication and follow-up for their hyperlipidemia. Hyperlipidemia management includes statins. Pertinent negatives include chest pain, dyspnea, joint pain, myalgia, palpitations and polyuria. hypertension The HTN started in 2006. The symptoms began gradually. The severity has been described as being 3. It is currently stable. Risk factors include age over age 60, family history HTN, gout or CAD and obesity. Pertinent negatives include chest pain, dyspnea, fatigue, headache, irregular heartbeat/palpitations and visual disturbances. diabetes The diabetes nina johnson began in 2006. Risk factors include: obesity and over age 4546 years old. Comorbidity: Hypertension. Pertinent negatives include chest pain and dyspnea. hypertension The symptoms beg an gradually. The severity has been described as being 3. It is currently stable. Pertinent negatives include chest pain, dyspnea, fatigue, headache and irregular heartbeat/palpitations. hyperlipidemia Duration of diso rder: 5 Years. The severity of the problem is moderate. The problem is controlled with medication. Patient compliance with diet is fair, with exercise is fair, with medication is good and with follow up is good. Reasons for screening include diabetes mellitus, hypertension and obesity. Reasons for screening do not include tobacco use. Pertinent negatives include chest pain, edema, fatigue and headache. diabetes The diabetes nina litus began in 2006. Risk factors include: obesity and over age [age] years old. Patient is compliant with follow-up. Pertinent negatives include blurred vision, chest pain, dyspnea, frequent infections, frequent urination and weight gain. Additional information: Losing weight slowly. A1C is great = 6.0 down from 6.6.. hypertension The severity has been described as being mild-moderate. Comorbid conditions include diabetes mellitus. It is currently stable. Risk factors include age over age 60, family history HTN and gout or CAD. Pertinent negatives include chest pain, dyspnea, headache and irregular heartbeat/palpitations. diabetes The diabetes nina litus began in 2006. Risk factors include: obesity and over age [age] years old. Patient is compliant with follow-up. Pertinent negatives include chest pain, dyspnea, frequent urination and polydipsia. Additional information: Up 4 lbs.A1C = 6.6 down a little from 6.7Microalbumin/creat =2.1. hyperlipidemia The severity of the problem is mild. The problem has improved. Patient compliance with diet is fair, with medication is good and with follow up is excellent. Reasons for screening do not include tobacco use. Pertinent negatives include chest pain, edema, headache, malaise, muscle weakness and myalgia. Additional information: Levels stable last 3 times, so clearly being compliant now with taking her medicine with no c/o side effects. Functional Status Date Functional Assessmen t No Information Instructions Date Instruction Additional Infor mation Maintain a healthy b alanced diet and regular exercise. Related to Encntr for general adult medical exam w/o abnormal findings Labs are good. A1C = 5.5. Weight is stable from last yr. Continue to watch diet.F/U 1 yr w/ lab a wk before. Related to Diabetes mellitus type 2 in obese Much better on repea t when stopped talking.Continue current medication - lisinopril refilled. Related to Essential (primary) hypertension Stable.Continue curr ent medication. Refilled simvastatin. Related to Hypercholesterolemia Prepare an AD Continue to take pre scribed medication Patient should sched ule an dental appt. Weight loss from baseline weight Related to Body mass index [BMI] 27.0-27.9, adult Giving encouragement to exercise Related to Body mass index [BMI] 27.0-27.9, adult Labs are good. A1C = 5.5. Pt has lost weight. Continue to watch diet.F/U 1 yr w/ lab a wk before. Related to Diabetes mellitus type 2 in obese Stable.Continue curr ent medication. Refilled simvastatin. Related to Hypercholesterolemia Stable.Continue curr ent medication - lisinopril refilled. Related to Essential (primary) hypertension Declines mammogram and bone dens ity. Related to Encounter for general adult medical examination without abnormal findings Weight loss from baseline weight Related to Body mass index [BMI] 27.0-27.9, adult Giving encouragement to exercise Related to Body mass index [BMI] 27.0-27.9, adult Improving. Rapid Cov id negative. Send PCR. May use [id number] cough suppressant such as dextromethorphan. The patient was advised to call the office if symptoms worsen or do not improve. Pt was swabbed for Covid-19. Pt is aware to quarantine, and to isolate at home as much as possible until results are received. She is to call the office should current symptoms worsen or should new symptoms develop. Related to Cough Resolved. Related to Diarr hea She is fasting today . Draw labs today. F/U in 1 yr for PE w/ lab that day as long as labs today are stable. Related to Diabetes mellitus type 2 in obese Stable.Continue current medicati on. Related to Hypercholesterolemia Stable.Continue current medicati on. Related to Essential (primary) hypertension Maintain a healthy b alanced DM and weight loss diet and regular exercise. Related to Encntr for general adult medical exam w/o abnormal findings She is fasting today . Draw labs now. F/U in 6 months or prn. Related to Diabetes mellitus type 2 in obese Stable.Continue current medicati on. Related to Hypercholesterolemia No vaccine needed si nce had shingles last yr. Related to History of shingles Maintain a healthy b alanced diet and regular exercise. Related to Encounter for general adult medical examination without abnormal findings Stable.Continue current medicati on. Related to Essential (primary) hypertension Stable.Continue current medicati on. Related to Essential (primary) hypertension She is fasting today . Draw labs now. F/U in 6 months with AWV that day. Related to Type 2 diabetes mellitus without complications Continue current med ication. Lab today. Related to Other hyperlipidemia Has had rash for ove r 7 d. May continue otc pain cream or Tylenol or IBU prn.They do not feel that she needs oral pain medication, but they are to call if they change their mind. The patient was advised to call the office if symptoms worsen or do not improve. Related to Herpes zoster without complication Continue current med ication. Lab today. Related to Other hyperlipidemia Stable.Continue current medicati on. Related to Essential (primary) hypertension Maintain a healthy b alanced DM diet and regular exercise. Related to Encntr for general adult medical exam w/o abnormal findings Flu and Tdap today.A lso recommend zostavax. Related to Encounter for immunization She is fasting thoug h late in the day. Hopefully no change in A1C since it's been a long time. F/U in 6 months with lab about 1 wk before appt. Related to Type 2 diabetes mellitus without complications Due for MMG- phone # given to daughter to scheduled. Related to Encounter for screening mammogram for malignant neoplasm of breast Refill medication Related to Oth er hyperlipidemia Stable.Continue curr ent medication.F/U in 6 months or as needed. Related to Essential (primary) hypertension Flu vaccine today Related to Enc ounter for immunization Maintain a healthy b alanced diet and regular exercise. Related to Encntr for general adult medical exam w/o abnormal findings Very stable. Has not had DM eye exam in several yrs. Related to Type 2 diabetes mellitus without complications We reviewed manageme nt of arthritis including exercise, bracing, medications, and injections.Corticosteroid injection given in the LEFT knee today. I hope this will help significantly with her pain and symptoms. We discussed the possibility of Visco supplementation, regenerative injections in the future as neededIce and elevate the knee as needed for pain or heat to the knee as needed for painHome physical therapy is ordered today. Work on range of motion, strengthening, and mobility to reduce fall risk and improve her activities. She will need a good home exercise program as well. Home therapy is ordered because patient is currently on Aricept and has difficulties driving the destinations.Double hinged knee brace provided for the LEFT knee today. Wear this when she does a lot of walking or activities for support. She will also be a candidate for medial costume seamstress brace in the future as needed and as desiredTrial of naproxen 375 mg to be used 1 tablet by mouth up to twice daily with food as needed for pain and inflammationTylenol as needed for breakthrough pain. No more than 3 g of Tylenol dailyContinue Aspercreme with lidocaine or try [id number] Salonpas or Biofreeze rubs as needed for painReturn for follow-up with me in 6 weeks, sooner as needed. At that time we will reassess her symptoms, her response to the injection and determine if further injection therapy, further evaluation with MRI or other interventions are needed.Patient and her daughter agree with the plan. They will see me back in 6 weeks, sooner as needed.Thank you to Dr. Mcnally for sending Hope to see me today. I hope that I'm elbow help her with her knee pain and symptoms. Related to Pain in left knee DME info given to pt education [place] for 3 months . She is a little tender at trochanteric bursa, but she is not a great historian.Would like her to be evaluated by ortho/SM to get their opinion.Will refer. Related to Pain in left leg Flu vaccine high dose. Related t o Influenza Vaccine Continue current med ication. Is very stable and controlled. Related to Other and unspecified hyperlipidemia Prevnar today. Related to Vacci nation against Strep pneumococcus Refill. Continue current medicat ion. Related to Hypertension, Benign Doing well.Keep up d iet and weight loss.F/U in 6-9 months for CPE (non-Medicare) with lab the wk before. Related to Diabetes Mellitus Type 2, Uncomplicated Counseled regarding the importance of weight loss. F/U in 4-5 months with lab about 1 wk before appt. Related to Diabetes Mellitus Type 2, Uncomplicated Doing well at taking medicine and keeping levels stable. Continue current medication. Related to Other and unspecified hyperlipidemia High dose vaccine to day.Rx given for shingles vaccine to get at the pharmacy. Related to Influenza Vaccine Continue current medication. Rel ated to Hypertension, Benign flu info education Assessments Type Assessment Date No Information Patient Care Teams Name Effective Dates (start - stop) Status Members No Information
--- NOTE | 2023-12-08 14:20 | ED_ITS ---
HPI - General Adult General Chief complaint: Rib Pain Stated complaint: fall - right side pain Time Seen by Provider: 12/08/23 13:10 Source: patient and family Mode of arrival: ambulatory Limitations: no limitations History of Present Illness HPI narrative: Patient is an 83-year-old female presenting to the emergency department for concerns of rib fractures. She was with her daughter when she stepped to just is on off a step and she slipped causing her right-sided back to hit the step. Her and her daughter both adamant she did not hit her head. She now has pain in her right lateral lower ribs. Denies chest pain or shortness of breath. Is otherwise doing well. Was able to ambulate after the fall. She is visiting from [place] on we seen with her daughter for the next all week and a half. Related Data Home Medications ?Medication ?Instructions ?Recorded ?Confirmed donepezil 10 mg tablet (Aricept) 10 mg PO DAILY 12/08/23 12/08/23 lisinopril 10 mg tablet 10 mg PO DAILY 12/08/23 12/08/23 simvastatin 20 mg tablet 20 mg PO DAILY 12/08/23 12/08/23 Previous Rx's ?Medication ?Instructions ?Recorded ketorolac 10 mg tablet 10 mg PO Q6H PRN pain #20 tabs 12/08/23 Allergies Allergy/AdvReac Type Severity Reaction Status Date / Time No Known Drug Allergies Allergy Verified 12/08/23 13:21 Review of Systems Narrative: Pertinent systems reviewed and were negative unless stated in HPI PFSH PFSH Social History Smoking Status: Never smoker Exam Narrative: Exam Narrative: Const: Well-nourished, Well-developed, in mild distress Eyes: PERRL, no conjunctival injection, and symmetrical lids HENT: Atraumatic external nose and ears. Moist mucous membranes. Neck: Symmetric, trachea midline, No thyromegaly. CVS: RRR, No murmurs or gallops. Peripheral pulses 2+ and equal in all extremities RESP: Unlabored respiratory effort. Clear to auscultation bilaterally. GI: Nontender/Nondistended, No rebound or guarding. MSK:Extremities w/o deformity, Normal Active ROM, tenderness right lower lateral ribs at about 9 through 11 Skin: Warm, Dry. No rashes or lesions. Neuro: Normal Muscle tone, No focal neurological deficits. Psych: Awake, Alert, & Oriented x3. Appropriate mood and affect. Const: Vital Signs, click to edit/add: Vital Signs - 24 hr 12/08/23 13:14 12/08/23 13:34 Temperature 98.0 F Pulse Rate [Right Pulse Oximeter] 66 Respiratory Rate 18 Blood Pressure [Ri ght Upper Arm] 183/83 H Pulse Oximetry 97 Oxygen Delivery Me thod Room Air Course Vital Signs Vital signs: Initial Vital Signs Pulse Rate 66 12/08/23 13:14 Pulse Rhythm Regular 12/08/23 13:14 Respiratory Rate 18 12/08/23 13:14 Blood Pressure 183/83 H 12/08/23 13:14 Blood Pressure Mean 116 H 12/08/23 13:14 Blood Pressure Position Sitting 12/08/23 13:14 Pulse Oximetry 97 12/08/23 13:14 Oxygen Delivery Method Room Air 12/08/23 13:14 Vital Signs Pulse Rate 66 12/08/23 13:14 Respiratory Rate 18 12/08/23 13:14 Blood Pressure 183/83 H 12/08/23 13:14 Pulse Oximetry 97 12/08/23 13:14 Oxygen Delivery Method Room Air 12/08/23 13:14 Temperature 98.0 F 12/08/23 13:34 Pulse Rate 66 12/08/23 13:14 Respiratory Rate 18 12/08/23 13:14 Blood Pressure 183/83 H 12/08/23 13:14 Pulse Oximetry 97 12/08/23 13:14 Oxygen Delivery Method Room Air 12/08/23 13:14 Medical Decision Making [facility] Narrative Medical decision making narrative: Patient is an is 83-year-old female presenting after a fall. Tear abdomen she did not hit her head and she is not on blood thinners so I do not believe head imaging or neck imaging is necessary. I will go straight to a CT scan the chest to better evaluate for signs of fractures. CT came back with nondisplaced fractures of the posterolateral right 10th and 11th ribs. No other fracture seen very small right pneumothorax and no significant pleural fluid. There is some mosaic attenuation that the radiologist he has had is chronic and not related to her recent fall. At this time her vital signs continue to the com pletely stable and there is no signs of for airway compromise or difficulty breathing or ear consider also will be staying with her daughter they can monitor at home and is not necessary to admit her to the hospital under observation. His the fractures are nondisplaced in the pneumothorax is very very small and not affecting her. Family is agreeable to this plan and will be able to keep a close eye on her. They were given strict return precautions to return if she has any worsening of her symptoms at all. Will discharge her with Toradol. Discharge Plan Discharge Clinical Impression: Fracture of rib Qualifiers: Encounter type: initial encounter Rib fracture type: multiple ribs Fracture type: closed Laterality: right Qualified Code(s): S22.41XA - Multiple fractures of ribs, right side, initial encounter for closed fracture Pneumothorax Qualifiers: Pneumothorax type: unspecified pneumothorax Qualified Code(s): J93.9 - Pneumothorax, unspecified Patient Disposition: Home w/ Parent or Adult Condition: Stable Instructions: Traumatic Pneumothorax (ED), Rib Fracture (ED) Additional Instructions: Return to the emergency department immediately if you notice any worsening in your breathing at all. Take the Toradol as needed for pain. Do not take ibuprofen or other NSAIDs at the same time. You do have gallstones but they are not of clinical significance at this time. Prescriptions: New ketorolac 10 mg tablet 10 mg PO Q6H PRN (Reason: pain) Qty: 20 0RF Rx Instructions: maximum total duration of 5 days from all oral, intranasal, or parenteral formulations No Action lisinopril 10 mg tablet 10 mg PO DAILY simvastatin 20 mg tablet 20 mg PO DAILY donepezil [Aricept] 10 mg tablet 10 mg PO DAILY Follow Up/Referrals: Provider,Not a Local [Primary Care Provider] - Stand Alone Forms: [employer] [facility] Info Instructions
== END 2023-12-08 14:38 | disposition home or self-care (01) ==
PROVIDERS: Emergency Provider Student in an Organized Health Care Education/Training Program
DX: S22.41XA Multiple fractures of ribs, right side, initial encounter for closed fracture (principal); S27.0XXA Traumatic pneumothorax, initial encounter; W10.9XXA Fall (on) (from) unspecified stairs and steps, initial encounter
CPT/HCPCS: 71250; 99282; 99284